=== PATIENT | male | born 1960 | race Caucasian/White ===

== ENCOUNTER 2016-08-15 10:44 | Emergency (ER) | payer OTHER ==
[2016-08-15 11:08] VITALS: BP 180/104
[2016-08-15] MEDS ORDERED: Sodium Chloride 0.9% 1,000 ML IV SCH (12:00)
[2016-08-15] MEDS ORDERED: Diatrizoate Meglumine/Diatrizoate Sodium 37% 120 ML Bottle PO ONE (13:34)
[2016-08-15] MEDS ORDERED: Iopamidol 612 MG/ML 150 ML Bottle IVPUSH ONE (13:34)
[2016-08-15] MEDS ORDERED: Sodium Chloride 0.9% 10 ML Syringe FLUSH PRN (13:35)
--- NOTE | 2016-08-15 14:11 | CT ---
CT abdomen and pelvis Technique: Multiple axial sections were obtained from above the dome of the diaphragm inferiorly through the pubic symphysis. Intravenous and oral contrast was utilized. Delayed images were also obtained through the bladder. Comparison: Previous renal stone protocol CT dated 07/07/16 is available. Findings: Visualized lung bases are clear. Liver shows no focal parenchymal abnormality. Spleen appears within normal limits. Small amount of gastroesophageal reflux of contrast is noted within the distal esophagus. Adrenal glands show no nodule. Several cysts are seen within both kidneys. Largest cyst located within the upper pole of the right kidney measuring 1.4 cm. Pancreas appears within normal limits. Aorta shows atherosclerotic change without aneurysmal dilatation. Appendix is seen which appears normal. Small fat-containing left inguinal hernia is noted. No inflammatory change or free fluid is seen. Delayed images shows contrast within the distal ureters and within the bladder. Bone window settings were reviewed which appear within normal limits for the patient's age. Incidental note of small fat-containing umbilical hernia. Impression: 1. Incidental findings as noted above. 2. Nothing acute is appreciated on CT study of the abdomen and pelvis. Diagnostic code #2
--- NOTE | 2016-08-15 14:31 | EDM.PDOC ---
ED HPI GI/ABDOMINAL - General Chief Complaint: Abdominal Pain Stated Complaint: ABDOMAL PAIN Time Seen by Provider: 08/15/16 11:35 Source of Information: Reports: Patient, RN notes reviewed History Limitations: Reports: No limitations - History of Present Illness INITIAL COMMENTS - FREE TEXT/NARRATIVE: The patient states that he underwent a left inguinal herniorrhaphy about a year ago, then a ventral hernia was found about one to 2 weeks ago, which the patient has yet to schedule for repair with Dr. Rico. He states that he developed lower abdominal pain about 2 weeks ago, but has not followed up on it. It is sharp/burning in character. It waxes and wanes. He feels better after going to the bathroom. He reports nausea and dry heaves. No constipation or diarrhea. He states that he had dysuria and urinary frequency today, but no urinary urgency. No recent fever. - Related Data Allergies/ADRs: Allergies Allergy/AdvReac Type Severity Reaction Status Date / Time ciprofloxacin Allergy Muscle Verified 08/15/16 11:08 Aches metoprolol Allergy Cannot Verified 08/15/16 11:08 Remember Home Meds: Home Meds Acetaminophen [Tylenol Arthritis Pain] 650 mg PO Q6H PRN 06/16/15 [History] Aspirin [Ecotrin] 81 mg PO DAILY 06/16/15 [History] Omeprazole 1 tab PO DAILY 08/15/16 [History] Past Medical History HEENT History: Reports: Impaired vision Other HEENT History: wears eyeglasses Respiratory History: Reports: PE Gastrointestinal History: Reports: GERD Genitourinary History: Reports: Prostate disorder, Renal calculus - Infectious Disease History Infectious Disease History: Reports: Shingles - Past Surgical History GI Surgical History: Reports: Cholecystectomy Male Surgical History: Reports: Lithotripsy (ES[facility]) Neurological Surgical History: Reports: C-Spine (ACDF) Social & Family History - Tobacco Use Smoking Status *Q: Current Every Day Smoker Years of Tobacco use: 30 Packs/Tins Daily: 0.5 - Caffeine Use Caffeine Use: Reports: None - Alcohol Use Alcohol Use History: No - Recreational Drug Use Recreational Drug Use: No - Living Situation & Occupation Living situation: Reports: , with significant other (Fiance) Occupation: employed ([employer]) ED ROS GENERAL - Review of Systems Review Of Systems: See Below Constitutional: Reports: no symptoms HEENT: Reports: No symptoms Respiratory: Reports: No Symptoms Cardiovascular: Reports: No symptoms Endocrine: Reports: no symptoms GI/Abdominal: Reports: Abdominal pain (as per the HPI), Nausea. Denies: Constipation, Diarrhea : Reports: dysuria, frequency. Denies: urgency Musculoskeletal: Reports: no symptoms Skin: Reports: no symptoms Neurological: Reports: No Symptoms Psychiatric: Reports: No symptoms Hematologic/Lymphatic: Reports: no symptoms Immunologic: Reports: no symptoms ED EXAM, GI/ABD - Physical Exam Exam: See Below Exam Limited By: No limitations General Appearance: alert, WD/WN, no apparent distress Eyes: bilateral: normal appearance, EOMI Ears: normal external exam, hearing grossly normal Nose: normal inspection, no blood Throat/Mouth: Normal inspection, Normal lips, Normal voice, No airway compromise Head: atraumatic, normocephalic Neck: normal inspection, full range of motion Respiratory/Chest: no respiratory distress, lungs clear, normal breath sounds, no accessory muscle use Cardiovascular: normal peripheral pulses, regular rate, rhythm, no gallop, no JVD, no murmur, no rub GI/Abdominal: normal bowel sounds, soft, no organomegaly, no distention, no abnormal bruit, no mass, tenderness (Primarily to the left lower quadrant and suprapubic areas. Essentially nontender elsewhere. No lower ventral hernia appreciated.). No: hernia (Male) Exam: No hernia, Normal inspection Back Exam: normal inspection, full range of motion. No: CVA tenderness (L), CVA tenderness (R) Extremities: normal inspection, normal range of motion, no pedal edema, normal capillary refill Neurological: alert, oriented, normal cognition, no motor/sensory deficits Psychiatric: normal affect Skin Exam: Warm, Dry, Intact, Normal color, No rash Lymphatic: no adenopathy Course - Vital Signs Last Recorded V/S: Last Vital Signs Temp 36.8 C 08/15/16 11:04 Pulse 96 08/15/16 11:04 Resp 16 08/15/16 11:04 BP 180/104 H 08/15/16 11:04 Pulse Ox 98 08/15/16 11:04 - Orders/Labs/Meds Labs: Laboratory Tests 08/15/16 08/15/16 08/15/16 Range/Units 12:08 12:08 12:25 WBC 7.26 (4.23-9.07) K/mm3 RBC 5.08 (4.63-6.08) M/mm3 Hgb 15.5 (13.7-17.5) gm/L Hct 44.7 (40.1-51.0) % MCV 88.0 (79.0-92.2) fl MCH 30.5 (25.7-32.2) pg MCHC 34.7 (32.2-35.5) g/dl RDW Std Deviation 41.6 (35.1-43.9) fL Plt Count 256 (163-337) K/mm3 MPV 10.0 (9.4-12.3) fl Neutrophils % (Manual) 60 (40-60) % Band Neutrophils % 1 (0-10) % Lymphocytes % (Manual) 33 (20-40) % Atypical Lymphs % 0 % Monocytes % (Manual) 4 (2-10) % Eosinophils % (Manual) 2 (0.8-7.0) % Basophils % (Manual) 0 L (0.2-1.2) Platelet Estimate Adequate RBC Morph Comment Normal Sodium 140 (136-145) mEq/L Potassium 4.1 (3.5-5.1) mEq/L Chloride 106 (98-107) mEq/L Carbon Dioxide 26 (21-32) mEq/L Anion Gap 12.1 (5-15) BUN 15 (7-18) mg/dL Creatinine 1.1 (0.7-1.3) mg/dL Est Cr Clr Drug Dosing 62.04 mL/min Estimated GFR (MDRD) > 60 (>60) mL/min BUN/Creatinine Ratio 13.6 L (14-18) Glucose 94 (74-106) mg/dL Calcium 8.7 (8.5-10.1) mg/dL Total Bilirubin 0.5 (0.2-1.0) mg/dL AST 25 (15-37) U/L ALT 37 (16-63) U/L Alkaline Phosphatase 107 (46-116) U/L Total Protein 7.1 (6.4-8.2) g/dl Albumin 3.8 (3.4-5.0) g/dl Globulin 3.3 gm/dL Albumin/Globulin Ratio 1.2 (1-2) Lipase 181 (73-393) U/L Urine Color Yellow (Yellow) Urine Appearance Clear (Clear) Urine pH 7.0 (5.0-8.0) Ur Specific [place] 1.020 (1.005-1.030) Urine Protein Negative (Negative) Urine Glucose (UA) Negative (Negative) Urine Ketones Negative (Negative) Urine Occult Blood Negative (Negative) Urine Nitrite Negative (Negative) Urine Bilirubin Negative (Negative) Urine Urobilinogen 0.2 (0.2-1.0) Ur Leukocyte Esterase Negative (Negative) Urine RBC Not seen (0-5) /hpf Urine WBC Not seen (0-5) /hpf Ur Epithelial Cells Not seen (0-5) /hpf Urine Bacteria Not seen (FEW) /hpf Urine Mucus Not seen (FEW) /hpf Meds: Medications Discontinued Medications Generic Name Dose Route Start Last Admin Trade Name Freq PRN Reason Stop Dose Admin Diatrizoate Meglum/Diatrizoate Sod 90 ml 08/15/16 13:34 08/15/16 13:48 Gastrografin 37% PO 08/15/16 13:35 90 ml ONETIME ONE Administration Sodium Chloride 1,000 mls @ 150 mls/hr 08/15/16 12:00 08/15/16 12:11 Normal Saline IV 150 mls/hr ASDIRECTED MINH Administration Iopamidol 125 ml 08/15/16 13:34 08/15/16 13:48 Isovue-300 (61%) IVPUSH 08/15/16 13:35 125 ml ONETIME ONE Administration Sodium Chloride 10 ml 08/15/16 13:35 08/15/16 13:48 Saline Flush FLUSH 10 ml ONETIME PRN Administration Keep Vein Open - Radiology Interpretation Free Text/Narrative:: CT of the abdomen and pelvis with oral and IV contrast is read by Dr. Theodore as: 1. Incidental finding as noted above (small fat-containing left inguinal hernia) . 2. Nothing acute is appreciated on CT study of the abdomen and pelvis. - Re-Assessments/Exams Free Text/Narrative Re-Assessment/Exam: 08/15/16 14:33 Test results discussed with the patient. Today's workup is completely unremarkable and does not explain the cause of the patient's pain. I will have him followup with Dr. Rico later this week, should his pain continue. Departure - Departure Time of Disposition: 14:34 Disposition: Home, Self-Care 01 Condition: good Clinical Impression: Abdominal pain of unknown etiology Instructions: Abdominal Pain, Adult, [id number] Referrals: Suma Bose [Primary Care Provider] - Emil Rico MD [Physician] - Forms: ED Department Discharge Additional Instructions: You were seen in the emergency room today for lower abdominal pain for the past couple of weeks. Workup in the ER included blood work, a urinalysis, and a CT scan of your abdomen and pelvis. Your workup was entirely unremarkable. The Radiologist incidentally noted a fat -containing left inguinal hernia, but nothing to be concerned about at this time. The cause of your abdominal pain is unclear. If you are still having pain later this week, we recommend you followup with Dr. Rico. If any other problems, please do not hesitate to return to the ER.
== END 2016-08-15 14:45 | disposition home or self-care (01) ==
LOC: JD.ED 10:44
DX: R10.30 Lower abdominal pain, unspecified (principal); K21.9 Gastro-esophageal reflux disease without esophagitis; Z88.1 Allergy status to other antibiotic agents; Z88.8 Allergy status to other drugs, medicaments and biological substances; Z79.82 Long term (current) use of aspirin; Z79.899 Other long term (current) drug therapy
CPT/HCPCS: 36415; 74177; 80053; 81001; 83690; 85025; 96360; 96361; 99284; J7040; J7050; Q9963; Q9967; 99283

== ENCOUNTER 2016-09-09 08:42 | Day surgery (SDC) | payer OTHER ==
[~2016-09-09 08:42] MED LIST: Lactated Ringers 1,000 ML IV SCH; Lidocaine 1%/Sod Bicarbonate in NS 8.4% 1 ML Syringe IV PRN; Sodium Chloride 0.9% 10 ML Syringe FLUSH PRN
[2016-09-09] MEDS ORDERED: Lidocaine 1% with EPINEPHrine 1:100,000 20 ML MDV ONE (10:15)
[2016-09-09] MEDS ORDERED: Bupivacaine 0.5%/EPINEPHrine 1:200,000 50 ML MDV ONE (10:16)
--- NOTE | 2016-09-09 10:27 | PCM.PREANE ---
Preanesthetic Assessment - Anesthesia/Transfusion/Family Hx Anesthesia History: Prior Anesthesia Reaction Type of Anesthesia Reaction: Other (see below) (bladder function show to return ) Family History of Anesthesia Reaction: Yes (father gets extreme N&V) Transfusion History: No Prior Transfusion(s) Intubation History: Unknown - Review of Systems General: No Symptoms Pulmonary: No Symptoms Cardiovascular: No Symptoms Gastrointestinal: No symptoms Neurological: Other (left shoulder pain with "pinched nerve" , tinnitus in past , not currently ) Other: Reports: None (patient knows he has a kidney stone, no current pain ) - Physical Assessment NPO Status Date: 09/08/16 NPO Status Time: 21:30 O2 Sat by Pulse Oximetry: 97 Respiratory Rate: 18 Vital Signs: Last Vital Signs Temp 36.1 C 09/09/16 08:50 Pulse 77 09/09/16 08:50 Resp 18 09/09/16 08:50 BP 141/95 H 09/09/16 08:50 Pulse Ox 97 09/09/16 08:50 Height: 1.63 m Weight: 84.822 kg ASA Class: 2 Mental Status: Alert & Oriented x3 Airway Class: Mallampati = 3 Thyro-Mental Finger Breadths: 2 Mouth Opening Finger Breadths: 4 ROM/Head Extension: Full Lungs: Normal respiratory effort, Decreased breath sounds (right >left ) Cardiovascular: Regular Rate, Regular Rhythm - Allergies Allergies/Adverse Reactions: Allergies Allergy/AdvReac Type Severity Reaction Status Date / Time ciprofloxacin Allergy Muscle Verified 09/09/16 09:18 Aches metoprolol Allergy Cannot Verified 09/09/16 09:18 Remember - Blood Blood Available: No - Anesthesia Plan Pre-Op Medication Ordered: None - Acknowledgements Anesthesia Type Planned: General Anesthesia Pt an Appropriate Candidate for the Planned Anesthesia: Yes Alternatives and Risks of Anesthesia Discussed w Pt/Guardian: Yes Pt/Guardian Understands and Agrees with Anesthesia Plan: Yes PreAnesthesia Questionnaire HEENT History: Reports: Hard of hearing Other HEENT History: tinnitis Cardiovascular History: Reports: Hypertension Respiratory History: Reports: Sleep apnea Other Respiratory History: states had sleep study. did not need c pap. 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 Gastrointestinal History: Reports: GERD, Irritable bowel syndrome Genitourinary History: Reports: Prostate disorder, Renal calculus, Other (see below) Other Genitourinary History: urinary frequency Musculoskeletal History: Reports: Gout, Other (see below) Other Musculoskeletal History: neck surgery. fusion Neurological History: Reports: Head trauma Other Neuro History: concussion with brain bleed approximately 6 years ago. Psychiatric History: Reports: Anxiety Hematologic History: Reports: Other (see below) Other Hematologic History: blood clotting disorder. developed pulmonary emboli after rupa Dermatologic History: Reports: Other (see below) Other Dermatologic History: scalp rash that comes and goes/ describes as bumps. - Infectious Disease History Infectious Disease History: Reports: Shingles - Past Surgical History GI Surgical History: Reports: Cholecystectomy, Hernia, inguinal Male Surgical History: Reports: Renal Calculus - SUBSTANCE USE Smoking Status *Q: Current Every Day Smoker Tobacco Use Within Last Twelve Months: Cigarettes Other Tobacco Use Within Last Twelve Months: 1/2 pack per day Days Per Week of Alcohol Use: 0 Recreational Drug Use History: No - HOME MEDS Home Medications: Home Meds Aspirin [Ecotrin] 81 mg PO DAILY 06/16/15 [History] Cranberry Extract [Cranberry] 1 tab PO ASDIRECTED PRN 09/08/16 [History] - CURRENT (IN HOUSE) MEDS Current Meds: Current Medications Lactated Ringer's (Ringers, Lactated) 1,000 mls @ 125 mls/hr IV ASDIRECTED MINH Stop: 09/09/16 23:00 Last Admin: 09/09/16 09:00 Dose: 125 mls/hr Lidocaine/Sodium Bicarbonate (Buffered Lidocaine 1% In Ns 8.4%) 0.25 ml IV ONETIME PRN PRN Reason: Prior to IV Start Stop: 09/09/16 18:00 Last Admin: 09/09/16 08:59 Dose: 0.25 ml Sodium Chloride (Saline Flush) 10 ml FLUSH ASDIRECTED PRN PRN Reason: Keep Vein Open Stop: 09/09/16 18:00
[2016-09-09] MEDS ORDERED: fentaNYL 100 MCG/2 ML SDV IVPUSH PRN (10:46)
[2016-09-09] MEDS ORDERED: Ondansetron 4 MG/2 ML SDV IVPUSH PRN (10:46)
[2016-09-09] MEDS ORDERED: diphenhydrAMINE 50 MG/ML SDV IVPUSH PRN (10:46)
[2016-09-09] MEDS ORDERED: Propofol 200 MG/20 ML SDV ONE (10:56)
[2016-09-09] MEDS ORDERED: fentaNYL 250 MCG/5 ML SDV ONE (10:57)
[2016-09-09] MEDS ORDERED: Midazolam 1 MG/ML 2 ML SDV ONE (10:57)
[2016-09-09] MEDS ORDERED: Lidocaine 1% 4 ML ONE (10:58)
[2016-09-09] MEDS ORDERED: ceFAZolin 1 GM Vial ONE (10:59)
[2016-09-09] MEDS ORDERED: Ondansetron 4 MG/2 ML SDV ONE (11:34)
[2016-09-09] MEDS ORDERED: Dexamethasone 4 MG/ML 5 ML MDV ONE (11:34)
[2016-09-09] MEDS ORDERED: HYDROmorphone 0.5 MG/0.5 ML Syringe IVPUSH PRN (11:45)
[2016-09-09] MEDS ORDERED: ePHEDrine/Normal Saline 25 MG/5 ML Syringe ONE (11:58)
[2016-09-09] MEDS ORDERED: Ketorolac 30 MG/ML SDV ONE (12:02)
--- NOTE | 2016-09-09 12:29 | PCM.OPNOTE ---
- General Post-Op/Procedure Note Date of Surgery/Procedure: 09/09/16 Operative Procedure(s): open left inguinal hernia with mesh Findings: Indirect left inguinal hernia Pre Op Diagnosis: Left inguinal hernia Post-Op Diagnosis: Indirect left inguinal hernia Anesthesia Technique: General LMA, Local Primary Surgeon: Emil Rico Pathology: None EBL in mLs: 2 Complications: None Condition: Good Free Text/Narrative:: After adequate general LMA anesthesia, was obtained the patient's left groin was prepped and draped sterilely for an open left inguinal hernia repair after local analgesia was given above the inguinal canal. A skin incision was made with a 15 blade down to the external oblique fascia. This structure was opened in the direction of its fibers carefully avoiding the ilioinguinal nerve. The spermatic cord was mobilized at the pubic tubercle and controlled with a Fili drain. The floor of the canal was slightly attenuated. There was a linear sac located deep to the cremaster along the anterior medial aspect of the cord. The cord structures were from the hernia sac, which was opened, and its contents was reduced. The sac was amputated at its base and controlled with an 3-0 Vicryl. Prolene mesh was placed in the floor of the canal. 2-0 Prolene was used to secure this mesh to the shelving edge of the inguinal ligament and the internal oblique fascia. A keyhole was used for cord egress. I irrigated out the field with saline. I closed the external oblique fascia over the cord using Vicryl. Additional local was given at this point. Oliver's fascia was closed with a running 3-0 Vicryl suture. The skin was closed with 4-0 Vicryl suture. Steri-Strips and gauze were used for the dressing.
--- NOTE | 2016-09-09 12:35 | PCM.POSTAN ---
POST ANESTHESIA ASSESSMENT - MENTAL STATUS Mental Status: other (drowsy ) - VITAL SIGNS Pulse Rate: 96 SaO2: 93 Resp Rate: 14 Blood Pressure: 122/75 - RESPIRATORY Respiratory Status: respiratory rate WNL, airway patent, O2 saturation stable - CARDIOVASCULAR CV Status: blood pressure stable, elevated pulse rate (above baseline ) - GASTROINTESTINAL GI Status: no symptoms - PAIN Pain Score: 0 - POST OP HYDRATION Hydration Status: adequate & stable
[2016-09-09 14:30] VITALS: BP 134/83
--- NOTE | 2016-09-09 14:45 | PCM48HPAN ---
Post Anesthesia Note - EVALUATION WITHIN 48HRS OF ANESTHETIC Vital Signs in Normal Range: Yes Patient Participated in Evaluation: Yes Respiratory Function Stable: Yes Airway Patent: Yes Cardiovascular Function Stable: Yes Hydration Status Stable: Yes Pain Control Satisfactory: Yes Nausea and Vomiting Control Satisfactory: Yes Mental Status Recovered: Yes
== END 2016-09-09 14:10 | disposition home or self-care (01) ==
LOC: JD.SDS 08:42
PROVIDERS: ATTEND Surgery
PROC: 0YU60JZ Supplement Left Inguinal Region with Synthetic Substitute, Open Approach (ICD-10-PCS; principal; 2016-09-09)
DX: K40.90 Unilateral inguinal hernia, without obstruction or gangrene, not specified as recurrent (principal)
CPT/HCPCS: 49507; C1781; J0690; J1100; J1885; J2250; J2405; J3010; J7050; J7120; 00830; J2704

== ENCOUNTER 2019-02-11 08:57 | Emergency (ER) | payer OTHER ==
[2019-02-11 09:21] VITALS: BP 148/100
[2019-02-11] MEDS ORDERED: Sodium Chloride 0.9% 1,000 ML IV STA (09:32)
[2019-02-11] MEDS ORDERED: Ondansetron 4 MG/2 ML SDV IVPUSH ONE (09:32)
[2019-02-11 09:34] VITALS: PULSE 93
--- NOTE | 2019-02-11 09:39 | EDM.PDOC ---
ED HPI GENERAL MEDICAL PROBLEM - General Chief Complaint: Abdominal Pain Stated Complaint: ABDOMINAL PAIN Time Seen by Provider: 02/11/19 09:12 Source of Information: Reports: Patient History Limitations: Reports: No Limitations - History of Present Illness INITIAL COMMENTS - FREE TEXT/NARRATIVE: The patient presents with abdominal pain. This started about a week ago. The pain would come and go but today it was more constant and he had a fever early this morning. He says the pain is in the left lower abdomen. He has no cough, chest pain or shortness of breath. He had his gallbladder removed. He still has his appendix. He has some diarrhea and nausea and vomiting at times. Onset: Gradual Duration: Week(s): (1) Location: Reports: Abdomen Quality: Reports: Sharp Severity: Moderate Improves with: Reports: None Worsens with: Reports: None Associated Symptoms: Reports: Fever/Chills, Nausea/Vomiting. Denies: Chest Pain , Cough, Headaches, Shortness of Breath Left Lower Abdomen Pain Score (Numeric/FACES): 6 - Related Data Allergies Allergy/AdvReac Type Severity Reaction Status Date / Time metoprolol Allergy Pain Verified 02/11/19 09:22 ciprofloxacin AdvReac Muscle Verified 02/11/19 09:22 Aches Home Meds: Home Meds Aspirin [Ecotrin EC] 81 mg PO DAILY 06/16/15 [History] Cranberry Fruit Extract [Cranberry] 1 tab PO ASDIRECTED PRN 09/08/16 [History] Metoprolol Succinate 50 mg PO DAILY 02/11/19 [History] Omeprazole 40 mg PO DAILY 02/11/19 [History] Ondansetron [Zofran ODT] 4 mg PO Q6H PRN #20 tab.dis 02/11/19 [Rx] amLODIPine [Norvasc] 5 mg PO DAILY 02/11/19 [History] atorvaSTATin [Lipitor] 20 mg PO DAILY 02/11/19 [History] Past Medical History HEENT History: Reports: Hard of Hearing Other HEENT History: tinnitis Cardiovascular History: Reports: Hypertension Respiratory History: Reports: Sleep Apnea Other Respiratory History: states had sleep study. did not need c pap. 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 Gastrointestinal History: Reports: GERD, Irritable Bowel Syndrome Genitourinary History: Reports: Prostate Disorder, Renal Calculus, Other (See Below) Other Genitourinary History: urinary frequency Musculoskeletal History: Reports: Gout, Other (See Below) Other Musculoskeletal History: neck surgery. fusion Neurological History: Reports: Head Trauma Other Neuro History: concussion with brain bleed approximately 6 years ago. Psychiatric History: Reports: Anxiety Hematologic History: Reports: Other (See Below) Other Hematologic History: blood clotting disorder. developed pulmonary emboli after rupa Dermatologic History: Reports: Other (See Below) Other Dermatologic History: scalp rash that comes and goes/ describes as bumps. - Infectious Disease History Infectious Disease History: Reports: Shingles - Past Surgical History GI Surgical History: Reports: Cholecystectomy, Hernia, Inguinal Social & Family History - Caffeine Use Caffeine Use: Reports: None - Living Situation & Occupation Living situation: Reports: , with Significant Other Occupation: Employed ED ROS GENERAL - Review of Systems Review Of Systems: See Below Constitutional: Reports: Fever (102 through the night) HEENT: Reports: No Symptoms Respiratory: Reports: No Symptoms Cardiovascular: Reports: No Symptoms Endocrine: Reports: No Symptoms GI/Abdominal: Reports: Abdominal Pain, Nausea, Vomiting : Reports: No Symptoms Musculoskeletal: Reports: No Symptoms ED EXAM, GI/ABD - Physical Exam Exam: See Below Exam Limited By: No Limitations General Appearance: Alert, No Apparent Distress Ears: Normal External Exam Nose: Normal Inspection Head: Atraumatic, Normocephalic Neck: Normal Inspection Respiratory/Chest: No Respiratory Distress, Lungs Clear, Normal Breath Sounds Cardiovascular: Regular Rate, Rhythm, No Edema, No Murmur GI/Abdominal Exam: Soft, No Organomegaly, No Mass, Tender (Mild tenderness to the left lower abdomen) Back Exam: Normal Inspection Extremities: Normal Inspection Course - Vital Signs Last Recorded V/S: Last Vital Signs Temp 97.7 F 02/11/19 09:15 Pulse 93 02/11/19 09:28 Resp 18 02/11/19 09:15 BP 148/100 H 02/11/19 09:15 Pulse Ox 95 02/11/19 09:15 - Orders/Labs/Meds Orders: Active Orders 24 hr Category Date Time Status Peripheral IV Care [RC] . DIRECTED Care 02/11/19 09:32 Active Abdomen Series w Chest 1V [CR] Stat Exams 02/11/19 09:32 Taken UA W/MICROSCOPIC [URIN] Stat Lab 02/11/19 09:32 Ordered Sodium Chloride 0.9% [Saline Flush] Med 02/11/19 09:32 Active 10 ml FLUSH ASDIRECTED PRN ED Antiemetic Medication Reflex [OM.PC] Stat Oth 02/11/19 09:32 Ordered Peripheral IV Insertion Adult [OM.PC] Stat Ot 02/11/19 09:32 Ordered Medication Orders Sodium Chloride (Saline Flush) 10 ml FLUSH ASDIRECTED PRN PRN Reason: Keep Vein Open Last Admin: 02/11/19 11:19 Dose: 10 ml Admin: 02/11/19 09:40 Dose: 10 ml Labs: Laboratory Tests 02/11/19 02/11/19 Range/Units 09:35 09:35 WBC 11.69 H (4.23-9.07) K/mm3 RBC 5.13 (4.63-6.08) M/mm3 Hgb 15.3 (13.7-17.5) gm/dl Hct 44.7 (40.1-51.0) % MCV 87.1 (79.0-92.2) fl MCH 29.8 (25.7-32.2) pg MCHC 34.2 (32.2-35.5) g/dl RDW Std Deviation 42.0 (35.1-43.9) fL Plt Count 289 (163-337) K/mm3 MPV 9.7 (9.4-12.3) fl Neut % (Auto) 89.5 H (34.0-67.9) % Lymph % (Auto) 5.5 L (21.8-53.1) % [place] % (Auto) 4.4 L (5.3-12.2) % Eos % (Auto) 0.2 L (0.8-7.0) Baso % (Auto) 0.2 (0.1-1.2) % Neut # (Auto) 10.47 H (1.78-5.38) K/mm3 Lymph # (Auto) 0.64 L (1.32-3.57) K/mm3 [place] # (Auto) 0.52 (0.30-0.82) K/mm3 Eos # (Auto) 0.02 L (0.04-0.54) K/mm3 Baso # (Auto) 0.02 (0.01-0.08) K/mm3 Manual Slide Review Abnormal smear Sodium 139 (136-145) mEq/L Potassium 3.6 (3.5-5.1) mEq/L Chloride 104 (98-107) mEq/L Carbon Dioxide 21 (21-32) mEq/L Anion Gap 17.6 H (5-15) BUN 20 H (7-18) mg/dL Creatinine 1.3 (0.7-1.3) mg/dL Est Cr Clr Drug Dosing 51.23 mL/min Estimated GFR (MDRD) 57 (>60) mL/min BUN/Creatinine Ratio 15.4 (14-18) Glucose 128 H (74-106) mg/dL Calcium 8.7 (8.5-10.1) mg/dL Total Bilirubin 0.5 (0.2-1.0) mg/dL AST 21 (15-37) U/L ALT 27 (16-63) U/L Alkaline Phosphatase 131 H (46-116) U/L Total Protein 7.3 (6.4-8.2) g/dl Albumin 3.7 (3.4-5.0) g/dl Globulin 3.6 gm/dL Albumin/Globulin Ratio 1.0 (1-2) Lipase 143 (73-393) U/L Meds: Medications Generic Name Dose Route Start Last Admin Trade Name Freq PRN Reason Stop Dose Admin Sodium Chloride 10 ml 02/11/19 09:32 02/11/19 11:19 Saline Flush FLUSH 10 ml ASDIRECTED PRN Administration Keep Vein Open Discontinued Medications Generic Name Dose Route Start Last Admin Trade Name Freq PRN Reason Stop Dose Admin Diatrizoate Meglum/Diatrizoate Sod 90 ml 02/11/19 11:11 02/11/19 11:19 Gastrografin 37% PO 02/11/19 11:12 90 ml ONETIME ONE Administration Sodium Chloride 1,000 mls @ 1,000 mls/hr 02/11/19 09:32 02/11/19 09:38 Normal Saline IV 02/11/19 10:31 1,000 mls/hr .BOLUS STA Administration Iopamidol 100 ml 02/11/19 11:11 02/11/19 11:19 Isovue-300 (61%) IVPUSH 02/11/19 11:12 100 ml ONETIME ONE Administration Ondansetron HCl 4 mg 02/11/19 09:32 02/11/19 09:38 Zofran IVPUSH 02/11/19 09:33 4 mg ONETIME ONE Administration - Re-Assessments/Exams Free Text/Narrative Re-Assessment/Exam: 02/11/19 11:52 I ordered an IV NS 1L bolus, zofran, labs, UA and an x-ray of his abdomen. His WBC was elevated at 11.69. His anion gap was elevated at 17.6. His glucose is 128. His alk phos is elevated at 131. His lipase is normal. His abdominal x- ray looks good. His WBC was up so I ordered a CT of his abdomen and pelvis and it shows bowel wall thickening within the jejunum most likely representing a mild enteritis. Mild gastroesophageal reflux of contrast. I will discharge him home with something for nausea. Departure - Departure Time of Disposition: 12:00 Disposition: Home, Self-Care 01 Condition: Good Clinical Impression: Enteritis - Discharge Information *PRESCRIPTION DRUG MONITORING PROGRAM REVIEWED*: No *COPY OF PRESCRIPTION DRUG MONITORING REPORT IN PATIENT VIRIDIANA: No Prescriptions: Ondansetron [Zofran ODT] 4 mg PO Q6H PRN #20 tab.dis PRN Reason: Nausea\vomiting Referrals: Lorena Moreno PA [Primary Care Provider] - Forms: ED Department Discharge Additional Instructions: Drink plenty of fluids. Take zofran every 6 hours as needed for nausea and vomiting. Take tylenol or motrin for pain. Please return if you are worse. - My Orders Last 24 Hours: My Active Orders 02/11/19 09:32 Peripheral IV Care [RC] . DIRECTED Abdomen Series w Chest 1V [CR] Stat UA W/MICROSCOPIC [URIN] Stat Sodium Chloride 0.9% [Saline Flush] 10 ml FLUSH ASDIRECTED PRN ED Antiemetic Medication Reflex [OM.PC] Stat Peripheral IV Insertion Adult [OM.PC] Stat - Assessment/Plan Last 24 Hours: My Active Orders 02/11/19 09:32 Peripheral IV Care [RC] . DIRECTED Abdomen Series w Chest 1V [CR] Stat UA W/MICROSCOPIC [URIN] Stat Sodium Chloride 0.9% [Saline Flush] 10 ml FLUSH ASDIRECTED PRN ED Antiemetic Medication Reflex [OM.PC] Stat Peripheral IV Insertion Adult [OM.PC] Stat
[2019-02-11] MEDS: Sodium Chloride 0.9% 10 ML Syringe FLUSH PRN ×2 (09:40→11:19)
[2019-02-11] MEDS ORDERED: Diatrizoate Meglumine/Diatrizoate Sodium 37% 120 ML Bottle PO ONE (11:11)
[2019-02-11] MEDS ORDERED: Iopamidol 612 MG/ML 100 ML Bottle IVPUSH ONE (11:11)
--- NOTE | 2019-02-11 11:37 | CT ---
CT abdomen and pelvis Technique: Multiple axial sections were obtained from above the dome of the diaphragm inferiorly through the pubic symphysis. Intravenous and oral contrast was utilized. Delayed images were obtained through the bladder. Comparison: Prior CT abdomen and pelvis exam of 05/19/17. Findings: Visualized lung bases showed nothing acute. Liver contains no focal abnormality. Spleen appears within normal limits. Small hiatal hernia is seen with gastroesophageal reflux of contrast. Surgical clips are seen from prior cholecystectomy. Adrenal glands show no nodule. Pancreas is within normal limits. Aorta shows no aneurysm. No retroperitoneal adenopathy or mesenteric abnormalities are seen. Appendix is seen and is normal in appearance. No diverticular disease is seen. Mild bowel wall thickening is seen within jejunal loops. No free fluid or inflammatory change is seen. Delayed images shows contrast within the distal ureters and within the bladder. Bone window settings were reviewed which appear within normal limits for the patient's age. Impression: 1. Bowel wall thickening within the jejunum most likely representing a mild enteritis. 2. Mild gastroesophageal reflux of contrast. 3. Other findings which are believed to be incidental. Nothing acute is otherwise seen on CT abdomen and pelvis exam. Diagnostic code #3
--- NOTE | 2019-02-12 10:57 | CR ---
Abdominal series: Supine and upright views of the abdomen were obtained as well as frontal view of the chest. Comparison: No previous study. Heart size and mediastinum are normal. Lungs are clear. Previous cervical spine surgery is noted. No free air is seen. Surgical clips are noted from prior cholecystectomy. Bowel gas pattern is normal. Calcifications are identified within the pelvis which likely represent phleboliths. Impression: 1. Nothing acute is seen on abdominal series. Diagnostic code #2
== END 2019-02-11 12:09 | disposition home or self-care (01) ==
LOC: JD.ED 08:57
DX: K52.9 Noninfective gastroenteritis and colitis, unspecified (principal); I10 Essential (primary) hypertension; K21.9 Gastro-esophageal reflux disease without esophagitis; Z88.1 Allergy status to other antibiotic agents; Z88.8 Allergy status to other drugs, medicaments and biological substances; Z79.82 Long term (current) use of aspirin; Z79.899 Other long term (current) drug therapy
CPT/HCPCS: 36415; 74022; 74177; 80053; 83690; 85025; 96361; 96374; 99284; J2405; J7040; Q9963; Q9967

== ENCOUNTER 2020-11-11 17:20 | Emergency (ER) | payer OTHER ==
[2020-11-11 17:31] VITALS: BP 151/96; PULSE 99
[2020-11-11] MEDS ORDERED: Tetracaine HCl/PF 0.5% 4 ML Bottle EYERT ONE (17:36)
[2020-11-11] MEDS ORDERED: Fluorescein 1 MG Ophth Strip EYERT ONE (17:36)
[2020-11-11] MEDS ORDERED: Erythromycin Base 0.5% Ophth Oint 1 GM Tube EYERT ONE (18:10)
--- NOTE | 2020-11-11 18:10 | EDM.PDOC ---
ED HPI GENERAL MEDICAL PROBLEM - General Chief Complaint: Eye Problems Stated Complaint: RT EYE PAIN Time Seen by Provider: 11/11/20 17:36 Source of Information: Reports: Patient History Limitations: Reports: No Limitations - History of Present Illness INITIAL COMMENTS - FREE TEXT/NARRATIVE: 60 yo M with R eye pain x a few days. No known injury, hasn't been welding or grinding metal. Has foreign body sensation, mild pain/irritation, noticed eye is red. No vision change. Doesn't wear contact lenses. Irrigated eye at home with eye drops with no relief. No additional complaint. Right Eye Pain Score (Numeric/FACES): 5 - Related Data Allergies Allergy/AdvReac Type Severity Reaction Status Date / Time metoprolol Allergy Pain Verified 11/11/20 17:31 ciprofloxacin AdvReac Muscle Verified 11/11/20 17:31 Aches Home Meds: Home Meds Aspirin [Ecotrin EC] 81 mg PO DAILY 06/16/15 [History] Cranberry Fruit Extract [Cranberry] 1 tab PO ASDIRECTED PRN 09/08/16 [History] Metoprolol Succinate 50 mg PO DAILY 02/11/19 [History] Omeprazole 40 mg PO DAILY 02/11/19 [History] amLODIPine [Norvasc] 5 mg PO DAILY 02/11/19 [History] atorvaSTATin [Lipitor] 20 mg PO DAILY 02/11/19 [History] Erythromycin Base [Erythromycin 0.5% Ophth Oint] 1 applic OP Q4H 10 Days tube 11/11/20 [Rx] Past Medical History HEENT History: Reports: Hard of Hearing Other HEENT History: tinnitis Cardiovascular History: Reports: Hypertension Respiratory History: Reports: PE Other Respiratory History: states had sleep study. did not need c pap. history o f pulmonary emboli after rupa. Gastrointestinal History: Reports: GERD, Irritable Bowel Syndrome Genitourinary History: Reports: Prostate Disorder, Renal Calculus, Other (See Below) Other Genitourinary History: urinary frequency Musculoskeletal History: Reports: Gout, Other (See Below) Other Musculoskeletal History: neck surgery. fusion Neurological History: Reports: Concussion, Head Trauma Other Neuro History: concussion with brain bleed approximately 6 years ago. Psychiatric History: Reports: Anxiety Endocrine/Metabolic History: Reports: Obesity/BMI 30+ Hematologic History: Reports: Other (See Below) Other Hematologic History: blood clotting disorder. developed pulmonary emboli after rupa Dermatologic History: Reports: Other (See Below) Other Dermatologic History: scalp rash that comes and goes/ describes as bumps. - Infectious Disease History Infectious Disease History: Reports: Novel Coronavirus, Shingles - Past Surgical History HEENT Surgical History: Reports: Oral Surgery GI Surgical History: Reports: Cholecystectomy, Hernia, Inguinal Male Surgical History: Reports: Kidney Stone Extraction Neurological Surgical History: Reports: C-Spine Other Musculoskeletal Surgeries/Procedures:: neck fusion Social & Family History - Family History Family Medical History: No Pertinent Family History - Tobacco Use Tobacco Use Status *Q: Former Tobacco User Used Tobacco, but Quit: Yes Month/Year Tobacco Last Used: 05/2017 - Caffeine Use Caffeine Use: Reports: Coffee - Recreational Drug Use Recreational Drug Use: No - Living Situation & Occupation Living situation: Reports: , with Significant Other Occupation: Employed ED ROS GENERAL - Review of Systems Review Of Systems: See Below Constitutional: Reports: No Symptoms HEENT: Reports: Eye Pain. Denies: Contact Lenses Respiratory: Reports: No Symptoms Neurological: Reports: No Symptoms ED EXAM GENERAL W FULL EYE - Physical Exam Exam: See Below Exam Limited By: No Limitations General Appearance: Alert, WD/WN, No Apparent Distress Eye Exam: Right Eye: Other (Had visible punctate FB present on cornea at 4pm pos ition - I was able to remove it with a cotton swab. Slit lamp exam normal. Fluroscein exam reveals corneal abrasion at 4pm position where FB was previously located. ), Bilateral Eye: EOMI, PERRL Eyelids: Right: Lid Everted for Exam, Bilateral: Normal Appearance Conjunctiva & Sclera: Right: Conjunctival Edema, Injected Cornea Exam: Right: Corneal Abrasion, Foreign Body, Examined with Flourescein Extraocular Movements: Right: Intact Pupils: Normal Accommodation Ears: Normal External Exam Nose: Normal Inspection Throat/Mouth: Normal Inspection Head: Atraumatic, Normocephalic Neck: Normal Inspection, Supple Respiratory/Chest: No Respiratory Distress Neurological: Alert, Oriented, Normal Cognition Psychiatric: Normal Affect, Normal Mood ED EYE w/ Add Procedure - Eye Procedure Alcaine Drops Administered: Yes Eye FB Removal: Removal w/ Cotton Swab Antibiotic Oinment/Drps Admin: Right Eye Course - Vital Signs Last Recorded V/S: Last Vital Signs Temp 36.5 C 11/11/20 17:27 Pulse 99 06/28/21 17:27 Resp 18 11/11/20 17:27 BP 151/96 H 11/11/20 17:27 Pulse Ox 96 11/11/20 17:27 - Orders/Labs/Meds Meds: Medications Discontinued Medications Generic Name Dose Route Start Last Admin Trade Name Karsten PRN Reason Stop Dose Admin Erythromycin 1 gm 11/11/20 18:10 11/11/20 18:24 Erythromycin Base 0.5% Ophth Oint 1 Gm Tube EYERT 11/11/20 18:11 1 applic ONETIME ONE Administration Fluorescein Sodium 1 mg 11/11/20 17:36 11/11/20 17:56 Fluorescein 1 Mg Ophth Strip EYERT 11/11/20 17:37 1 mg ONETIME ONE Administration Tetracaine HCl 0.5 ml 11/11/20 17:36 11/11/20 17:56 Tetracaine Hcl/Pf 0.5% 4 Ml Bottle EYERT 11/11/20 17:37 2 drop ASDIRECTED ONE Administration Departure - Departure Time of Disposition: 18:10 Disposition: Home, Self-Care 01 Clinical Impression: Corneal abrasion Qualifiers: Encounter type: initial encounter Laterality: right Qualified Code(s): S05.01XA - Injury of conjunctiva and corneal abrasion without foreign body, right eye, initial encounter Retained foreign body in eye Qualifiers: Laterality: right Qualified Code(s): H44.701 - Unspecified retained (old) intraocular foreign body, nonmagnetic, right eye - Discharge Information Prescriptions: Erythromycin Base [Erythromycin 0.5% Ophth Oint] 1 applic OP Q4H 10 Days tube Instructions: Corneal Abrasion, [id number] Referrals: PCP,None [Primary Care Provider] - Forms: ED Department Discharge Additional Instructions: 1. Use erythromycin ointment in R eye every 3-4 hours while awake 2. Follow up with an eye doctor as needed for any worsening, vision change, or eye discharge Sepsis Event Note (ED) - Evaluation Sepsis Screening Result: No Definite Risk - Focused Exam Vital Signs: Vital Signs Temp Pulse Resp BP Pulse Ox 11/11/20 17:27 36.5 C 99 18 151/96 H 96
== END 2020-11-11 18:24 | disposition home or self-care (01) ==
LOC: JD.ED 17:20
DX: S05.01XA Injury of conjunctiva and corneal abrasion without foreign body, right eye, initial encounter (principal); I10 Essential (primary) hypertension; K21.9 Gastro-esophageal reflux disease without esophagitis; M10.9 Gout, unspecified; E66.9 Obesity, unspecified; Z68.38 Body mass index [BMI] 38.0-38.9, adult; Z87.891 Personal history of nicotine dependence; Z88.1 Allergy status to other antibiotic agents; Z88.8 Allergy status to other drugs, medicaments and biological substances; Z79.82 Long term (current) use of aspirin; Z79.899 Other long term (current) drug therapy; X58.XXXA Exposure to other specified factors, initial encounter
CPT/HCPCS: 65222; 99283; A9270; 65205; 99282

== ENCOUNTER 2021-08-21 08:50 | Day surgery (SDC) | payer OTHER ==
[~2021-08-21 08:50] MED LIST changes: +Lidocaine 1%/Sod Bicarbonate in NS 8.4% 1 ML Syringe IDERM PRN; -Lidocaine 1%/Sod Bicarbonate in NS 8.4% 1 ML Syringe IV PRN; +Sodium Chloride 0.9% 10 ML Syringe FLUSH SCH
[2021-08-21] MEDS ORDERED: Propofol 200 MG/20 ML SDV ONE (09:49)
[2021-08-21] MEDS ORDERED: Midazolam 1 MG/ML 2 ML SDV ONE (09:50)
[2021-08-21] MEDS ORDERED: Lidocaine 1% 4 ML ONE (09:50)
[2021-08-21] MEDS ORDERED: fentaNYL 100 MCG/2 ML SDV ONE (09:50)
[2021-08-21 11:42] VITALS: BP 108/79; PULSE 62
== END 2021-08-21 11:27 | disposition home or self-care (01) ==
LOC: JD.SDS 08:50
PROVIDERS: ATTEND Surgery
DX: K21.00 Gastro-esophageal reflux disease with esophagitis, without bleeding (principal); K44.9 Diaphragmatic hernia without obstruction or gangrene; K31.89 Other diseases of stomach and duodenum; K22.89 Other specified disease of esophagus; I12.9 Hypertensive chronic kidney disease with stage 1 through stage 4 chronic kidney disease, or unspecified chronic kidney disease; E11.22 Type 2 diabetes mellitus with diabetic chronic kidney disease; H90.5 Unspecified sensorineural hearing loss; N18.9 Chronic kidney disease, unspecified; E78.00 Pure hypercholesterolemia, unspecified; E66.9 Obesity, unspecified; Z68.37 Body mass index [BMI] 37.0-37.9, adult; Z88.1 Allergy status to other antibiotic agents; Z90.49 Acquired absence of other specified parts of digestive tract; Z98.890 Other specified postprocedural states; Z79.82 Long term (current) use of aspirin; Z86.16 Personal history of COVID-19; Z79.899 Other long term (current) drug therapy; Z87.891 Personal history of nicotine dependence
CPT/HCPCS: 82947; J2250; J2704; J3010; J7120

== ENCOUNTER 2021-10-06 07:53 | Emergency (ER) | payer OTHER ==
[2021-10-06 08:18] VITALS: BP 149/102; PULSE 75
[2021-10-06] MEDS ORDERED: HYDROmorphone 1 MG/ML Syringe IM ONE (08:30)
== END 2021-10-06 09:25 | disposition home or self-care (01) ==
LOC: JD.ED 07:53
DX: S42.201A Unspecified fracture of upper end of right humerus, initial encounter for closed fracture (principal); E78.00 Pure hypercholesterolemia, unspecified; I10 Essential (primary) hypertension; K21.9 Gastro-esophageal reflux disease without esophagitis; E66.9 Obesity, unspecified; Z79.82 Long term (current) use of aspirin; Z79.899 Other long term (current) drug therapy; Z88.1 Allergy status to other antibiotic agents; Z88.8 Allergy status to other drugs, medicaments and biological substances; Z68.36 Body mass index [BMI] 36.0-36.9, adult; W18.30XA Fall on same level, unspecified, initial encounter; Y93.01 Activity, walking, marching and hiking
CPT/HCPCS: 73030; 96372; 99283; J1170

== ENCOUNTER 2022-07-30 08:09 | Day surgery (SDC) | payer OTHER ==
[2022-07-30] MEDS ORDERED: Lidocaine 1% 2 ML ONE (09:59)
[2022-07-30] MEDS ORDERED: fentaNYL 100 MCG/2 ML SDV ONE (10:00)
[2022-07-30] MEDS ORDERED: Midazolam 1 MG/ML 2 ML SDV ONE (10:00)
[2022-07-30] MEDS ORDERED: Propofol 200 MG/20 ML SDV ONE (10:00)
[2022-07-30 12:52] VITALS: BP 113/71; PULSE 62
== END 2022-07-30 11:10 | disposition home or self-care (01) ==
LOC: JD.SDS 08:09
PROVIDERS: ATTEND Surgery
DX: Z12.11 Encounter for screening for malignant neoplasm of colon (principal); K64.4 Residual hemorrhoidal skin tags; K64.8 Other hemorrhoids; I12.9 Hypertensive chronic kidney disease with stage 1 through stage 4 chronic kidney disease, or unspecified chronic kidney disease; N18.9 Chronic kidney disease, unspecified; G89.29 Other chronic pain; M54.2 Cervicalgia; K21.9 Gastro-esophageal reflux disease without esophagitis; E78.00 Pure hypercholesterolemia, unspecified; N40.0 Benign prostatic hyperplasia without lower urinary tract symptoms; K58.9 Irritable bowel syndrome, unspecified; E11.9 Type 2 diabetes mellitus without complications; M19.90 Unspecified osteoarthritis, unspecified site; E66.9 Obesity, unspecified; F41.9 Anxiety disorder, unspecified; Z68.34 Body mass index [BMI] 34.0-34.9, adult; Z98.890 Other specified postprocedural states; Z86.16 Personal history of COVID-19; Z79.899 Other long term (current) drug therapy; Z79.82 Long term (current) use of aspirin; Z88.8 Allergy status to other drugs, medicaments and biological substances; Z87.891 Personal history of nicotine dependence; Z86.010 Personal history of colon polyps
CPT/HCPCS: 00811; J2250; J2704; J3010; J3490; J7120

== ENCOUNTER 2023-02-22 07:21 | Day surgery (SDC) | payer OTHER ==
[~2023-02-22 07:21] MED LIST changes: +Dexamethasone 4 MG/ML 5 ML MDV ONE; +Dexmedetomidine 200 MCG/2 ML SDV ONE; +EPINEPHrine 1 MG/ML SDV ONE; +Ketorolac 30 MG/ML SDV ONE; +Lidocaine 1% 4 ML ONE; -Lidocaine 1%/Sod Bicarbonate in NS 8.4% 1 ML Syringe IDERM PRN; +Midazolam 1 MG/ML 2 ML SDV ONE; +Ondansetron 4 MG/2 ML SDV ONE; +Propofol 200 MG/20 ML SDV ONE; +Rocuronium 50 MG/5 ML Vial ONE; +Ropivacaine 0.5% 5 MG/ML 30 ML SDV ONE; +fentaNYL 100 MCG/2 ML SDV ONE
[2023-02-22] MEDS ORDERED: oxyCODONE ER 10 MG TAB.ER PO SCH (07:30)
[2023-02-22] MEDS ORDERED: Pregabalin 25 MG Cap PO SCH (07:30)
[2023-02-22] MEDS ORDERED: Acetaminophen 325 MG Tab PO SCH (07:30)
[2023-02-22] MEDS ORDERED: Tranexamic Acid 1,000 MG/10 ML Vial ONE (07:54)
[2023-02-22] MEDS ORDERED: Vancomycin 1 GM SDV ONE (07:54)
[2023-02-22] MEDS ORDERED: ePHEDrine 50 MG/ML SDV ONE (09:41)
[2023-02-22] MEDS ORDERED: HYDROmorphone 0.5 MG/0.5 ML Syringe IVPUSH PRN (10:04)
[2023-02-22] MEDS ORDERED: fentaNYL 100 MCG/2 ML SDV IVPUSH PRN (10:04)
[2023-02-22] MEDS ORDERED: Ondansetron 4 MG/2 ML SDV IVPUSH PRN ×2 (10:04→15:43)
[2023-02-22] MEDS ORDERED: fentaNYL 100 MCG/2 ML SDV ONE (10:12)
[2023-02-22] MEDS ORDERED: HYDROmorphone 0.5 MG/0.5 ML Syringe ONE (10:13)
[2023-02-22] MEDS ORDERED: Ketamine 500 mg/10 ML MDV ONE (10:14)
[2023-02-22] MEDS ORDERED: oxyCODONE 5 MG Tab PO PRN ×2 (12:02→15:47)
[2023-02-22] MEDS ORDERED: Promethazine 12.5 MG in Sodium Chloride 0.9% 50 ML IV PRN (14:11)
[2023-02-22] MEDS ORDERED: Cyclobenzaprine 10 MG Tab PO PRN (15:26)
[2023-02-22] MEDS: Metoprolol Tartrate 50 MG Tab PO SCH (20:59)
[2023-02-23] MEDS ORDERED: Pantoprazole 40 MG Tab.CR PO SCH (09:00)
[2023-02-23] MEDS ORDERED: Polyethylene Glycol 3350 Powder 17 GM Packet PO SCH (09:00)
[2023-02-23] MEDS ORDERED: atorvaSTATin 20 MG Tab PO SCH (09:00)
[2023-02-23] MEDS ORDERED: amLODIPine 5 MG Tab PO SCH (09:00)
[2023-02-23] MEDS: Metoprolol Tartrate 50 MG Tab PO SCH (09:02)
[2023-02-23 09:08] VITALS: BP 115/56; PULSE 94
== END 2023-02-23 10:15 | disposition home or self-care (01) ==
LOC: JD.SDS 07:21 → JD.MS 18:41 → JD.SDS 02-23 10:15
PROVIDERS: ATTEND Orthopaedic Surgery
DX: S42.201P Unspecified fracture of upper end of right humerus, subsequent encounter for fracture with malunion (principal); M75.41 Impingement syndrome of right shoulder; I12.9 Hypertensive chronic kidney disease with stage 1 through stage 4 chronic kidney disease, or unspecified chronic kidney disease; E11.22 Type 2 diabetes mellitus with diabetic chronic kidney disease; N18.9 Chronic kidney disease, unspecified; G89.29 Other chronic pain; M54.2 Cervicalgia; M25.512 Pain in left shoulder; K21.9 Gastro-esophageal reflux disease without esophagitis; E78.00 Pure hypercholesterolemia, unspecified; Z88.1 Allergy status to other antibiotic agents; Z88.8 Allergy status to other drugs, medicaments and biological substances; Z79.82 Long term (current) use of aspirin; Z79.899 Other long term (current) drug therapy; Z87.891 Personal history of nicotine dependence; E66.9 Obesity, unspecified
CPT/HCPCS: 01638; 64415; 76000; 76000-26; 97110-GP; 97161-GP; A9270-GY; C1713; C1769; C1776; J0171; J1100; J1170; J1885; J2250; J2405; J2704; J2795; J3010; J3370; J3490; J7030; J7120

== ENCOUNTER 2025-03-25 07:22 | Emergency (ER) | payer OTHER ==
[2025-03-25 07:36] VITALS: PULSE 90
[2025-03-25] MEDS ORDERED: Sodium Chloride 0.9% 10 ML Syringe FLUSH PRN (07:56)
[2025-03-25 08:20] LABS: BASOPHILS ABSOLUTE AUTO 0.1 K/mm3 (0.0-0.2); BASOPHILS PERCENT AUTO 0.5 % (0.0-1.0); EOSINOPHILS ABSOLUTE AUTO 0.1 K/mm3 (0.0-0.4); EOSINOPHILS PERCENT AUTO 1.0 % (0.0-6.0); IMMATURE GRAN ABSOLUTE AUTO 0.04 K/mm3 (0.00-0.05); IMMATURE GRAN PERCENT AUTO 0.3 % (0.0-0.4); LYMPHOCYTES ABSOLUTE AUTO 2.5 K/mm3 (1.0-4.8); LYMPHOCYTES PERCENT AUTO 21.3 % (24.0-44.0); MEAN PLATELET VOLUME 9.7 fl (9.4-12.4); MONOCYTES ABSOLUTE AUTO 0.9 K/mm3 (0.0-0.8); MONOCYTES PERCENT AUTO 7.6 % (0.0-8.0); NEUTROPHILS ABSOLUTE AUTO 8.1 K/mm3 (1.8-7.7); NEUTROPHILS PERCENT AUTO 69.3 % (41.0-71.0); NRBC ABSOLUTE 0.00 (0.00-0.02); NRBC PERCENT 0.0 % (0.0-0.2); PLATELET COUNT,PLT 310 K/mm3 (150-400); RED BLOOD CELL COUNT 5.35 M/mm3 (4.52-5.90); WHITE BLOOD CELL COUNT,WBC 11.67 K/mm3 (3.9-11.3)
[2025-03-25 08:50] LABS: A/G RATIO 0.9 (1-2); ALANINE AMINOTRANSFERASE,ALT 25.0 U/L (16-63); ASPARTATE AMNIOTRANSFERASE,AST 16.0 U/L (15-37); BILIRUBIN TOTAL 0.7 mg/dL (0.2-1.0); BLOOD UREA NITROGEN,BUN 14.0 mg/dL (7-18); CARBON DIOXIDE,CO2 25.0 mEq/L (21-32); CHLORIDE,CL 104.0 mEq/L (98-107); CREATININE 1.2 mg/dL (0.7-1.3); EST CRCL DRUG DOSING (CG) 51.39 mL/min; ESTIMATED GFR 67.0 mL/min (>60); GLUCOSE RANDOM 135.0 mg/dL (70-99); POTASSIUM,K 4.1 mEq/L (3.5-5.1); PROTEIN TOTAL,TP 8.0 g/dl (6.4-8.2); SODIUM,NA 141.0 mEq/L (136-145)
[2025-03-25] MEDS: Ketorolac 15 MG/ML SDV IVPUSH ONE (09:07)
[2025-03-25] MEDS: Ketorolac 30 MG/ML SDV IVPUSH ONE (09:08)
[2025-03-25] MEDS: Ketorolac 30 MG/ML SDV ONE (09:25)
[2025-03-25] MEDS: Lidocaine 1% with EPINEPHrine 1:100,000 10 ML MDV INJECT ONE (14:25)
[2025-03-25] MEDS: Lidocaine 1% with EPINEPHrine 1:100,000 20 ML MDV ONE (14:25)
[2025-03-25 15:03] LABS: BODY FLUID TYPE SYNOVIAL FLUID
[2025-03-25 15:19] LABS: GLUCOSE,BODY FLUID 107 mg/dL
[2025-03-25 15:31] LABS: PROTEIN,BODY FLUID 5.0 gm/dl
[2025-03-25 15:45] LABS: MONONUCLEAR, BODY FLUID 32.3 % (0.0-0.0); POLYMORPHONUCLEAR, BODY FLUID 67.7 % (0.0-0.0)
[2025-03-25 18:45] LABS: APPEARANCE,BODY FLUID TURBID; COLOR,BODY FLUID RED; SITE,BODY FLUID RIGHT KNEE; VOLUME BODY FLUID 25 ML
[2025-03-25 18:47] LABS: WBC BODY FLUID 2820 /uL (0-600)
[2025-03-26 01:00] VITALS: BP 130/78
== END 2025-03-25 19:38 | disposition home or self-care (01) ==
LOC: JD.ED 07:22
DX: M25.461 Effusion, right knee (principal); M25.561 Pain in right knee; I12.9 Hypertensive chronic kidney disease with stage 1 through stage 4 chronic kidney disease, or unspecified chronic kidney disease; E11.22 Type 2 diabetes mellitus with diabetic chronic kidney disease; N18.9 Chronic kidney disease, unspecified; E78.00 Pure hypercholesterolemia, unspecified; K21.9 Gastro-esophageal reflux disease without esophagitis; M19.90 Unspecified osteoarthritis, unspecified site; Z88.1 Allergy status to other antibiotic agents; Z88.8 Allergy status to other drugs, medicaments and biological substances; Z79.82 Long term (current) use of aspirin; Z79.899 Other long term (current) drug therapy; Z86.16 Personal history of COVID-19; Z90.49 Acquired absence of other specified parts of digestive tract; Z79.52 Long term (current) use of systemic steroids
CPT/HCPCS: 20610; 36415; 73564; 80053; 82945; 84157; 85025; 85652; 86140; 87070; 87075; 87205; 89050; 89060; 96374; 99283; J1885; J2004; 99284